=== PATIENT | male | born 1985 | race Caucasian/White ===

== ENCOUNTER 2017-09-15 23:44 | Emergency (ER) | payer SELFPAY ==
[~2017-09-15] VITALS: Ht 180.3 cm; Wt 75.0 kg
[~2017-09-15 23:44] MED LIST: Z.0.NO CURRENT MEDS
[2017-09-15 23:49] VITALS: BP 138/80; PULSE 101; RESP 20; TEMP 98; O2SAT 98
[2017-09-16] MEDS ORDERED: TETANUS/DIPHTHERIA TOXOID ADULT 0.5 ML VIAL IM ONE
--- NOTE | 2017-09-16 00:36 | PD ---
HPI Chief Complaint: Injury Time Seen by Provider: 23:54 Travel History International Travel<30 days: No Contact w/Intl Traveler<30days: No Traveled to known affect area: No History of Present Illness HPI Patient is a 32-year-old male presenting to emerge department evaluation of a laceration to his right fifth finger. Patient states he broke it on a beer bottle. He reports his pain is a 4 out of 10, he states is throbbing. He denies any other injury or trauma. He is uncertain when his last tetanus vaccine was administered. Patient denies any weakness or numbness in his hand or fingers. Symptom onset was sudden, symptoms are moderate in nature. There are no alleviating factors. Pain is constant and exacerbated with movement. [facility] Past Medical History Medical History: Denies Significant Hx Tetanus Vaccination: Unknown Influenza Vaccination: No Past Surgical History Surgical History: No Previous Surgery Social History Alcohol Use: Yes (2 TIMES A WEEK) Tobacco Use: Yes (1 PACK A DAY) Substance Use: No Allergies-Medications (Allergen,Severity, Reaction): Coded Allergies: No Known Allergies (Verified Allergy, Mild, 09/15/17) Reported Meds & Prescriptions Reported Meds & Active Scripts Active No Active Prescriptions or Reported Medications Review of Systems Except as stated in HPI: all other systems reviewed are Neg Musculoskeletal: Positive: Pain Skin: Positive Other (Laceration) Physical Exam Narrative GENERAL: Well-developed, well-nourished, alert male. Presenting in no acute distress. SKIN: Warm and dry. 3 cm laceration to the right fifth finger on the lateral aspect. HEAD: Atraumatic. Normocephalic. EYES: Pupils equal and round. No scleral icterus. No injection or drainage. ENT: No nasal bleeding or discharge. Mucous membranes pink and moist. NECK: Trachea midline. No JVD. CARDIOVASCULAR: Regular rate and rhythm. RESPIRATORY: No accessory muscle use. Clear to auscultation. Breath sounds equal bilaterally. GASTROINTESTINAL: Abdomen soft, non-tender, nondistended. Hepatic and splenic margins not palpable. MUSCULOSKELETAL: Extremities without clubbing, cyanosis, or edema. No obvious deformities. NEUROLOGICAL: Awake and alert. No obvious cranial nerve deficits. Motor grossly within normal limits. Five out of 5 muscle strength in the arms and legs. Normal speech. Patient is neurovascularly intact. PSYCHIATRIC: Appropriate mood and affect; insight and judgment normal. Data Data Last Documented VS Vital Signs Date Time Temp Pulse Resp B/P (MAP) Pulse Ox O2 Delivery O2 Flow Rate FiO2 09/15/17 23:49 98.0 101 20 138/80 (99) 98 Orders Orders Tetanus/Diphtheria Tox Adult (Tetanus/Di (09/16/17 00:00) Support Splint (09/16/17 00:31) Ed Discharge Order (09/16/17 00:31) MDM Medical Decision Making Medical Screen Exam Complete: Yes Emergency Medical Condition: Yes Interpretation(s) Vital Signs Date Time Temp Pulse Resp B/P (MAP) Pulse Ox O2 Delivery O2 Flow Rate FiO2 09/15/17 23:49 98.0 101 20 138/80 (99) 98 Differential Diagnosis Laceration versus abrasion versus tendon injury versus other Narrative Course Patient is a 32-year-old male presenting to emerge department for evaluation of a laceration. Patient has no focal deficits on exam and he is neurovascularly intact. Please see procedure report for laceration repair. Patient was placed in a finger splint, he was advised on how to care for his stitches. He was advised to avoid submerging his hand in water or in the ocean. He was advised that the stitches will need to be removed in 10 days, he was advised to return to emergency department any new or worsening symptoms or to follow-up with his primary doctor. Patient verbalized understanding of these instructions. Patient stable for discharge. Procedures Procedure Narrative LACERATION LOCATION: Right fifth finger LENGTH: 3 cm NUMBER OF STITCHES/KALE: 11 stitches REPAIR: The area of the laceration was prepped with Betadine and sterilely draped. The laceration was infiltrated with 1% lidocaine. The wound was copiously irrigated and explored without evidence of foreign body, tendon injury or neurovascular injury. The wound was closed using 5-0 Ethilon. This was a 1 layer repair. A sterile dressing was applied. The patient was advised to keep the dressing clean and dry. Patient tolerated the procedure well. LACERATION LOCATION: Right elbow LENGTH: 1 cm NUMBER OF STITCHES/KALE: 1 stitch REPAIR: The area of the laceration was prepped with Betadine and sterilely draped. The laceration was infiltrated with 1% lidocaine. The wound was copiously irrigated and explored without evidence of foreign body, tendon injury or neurovascular injury. The wound was closed using 5-0 Ethilon. This was a 1 layer repair. A sterile dressing was applied. The patient was advised to keep the dressing clean and dry. Patient tolerated the procedure well. Diagnosis Primary Impression: Finger laceration Qualified Codes: S61.216A - Laceration without foreign body of right little finger without damage to nail, initial encounter Additional Impression: Elbow laceration Qualified Codes: S51.011A - Laceration without foreign body of right elbow, initial encounter Referrals: Primary Care Physician 1 week Patient Instructions: Care For Your Stitches (ED), Finger Laceration (ED), General Instructions Additional Instructions: Follow-up with your primary doctor Keep stitches clean and dry, do not submerge in water or the ocean Keep finger splint on for support Return to emergency department for any new worsening symptoms Stitches will need to be removed in 10 days, you can return to emergency department follow-up with your primary doctor Med/Other Pt SpecificInfo: No Change to Meds Scripts No Active Prescriptions or Reported Meds Disposition: 01 DISCHARGE HOME Condition: Stable Grecia Ventura September 16, 2017 00:36
== END 2017-09-16 01:06 | disposition home or self-care (01) ==
LOC: NEPD 23:44
DX: S61.216A Laceration without foreign body of right little finger without damage to nail, initial encounter (principal); S51.011A Laceration without foreign body of right elbow, initial encounter; W25.XXXA Contact with sharp glass, initial encounter; Z23 Encounter for immunization
CPT/HCPCS: 12002; 90471; 90714